=== PATIENT | male | born 1945 | race Caucasian/White ===

== ENCOUNTER 2018-06-20 10:02 | Outpatient (CLI) | payer OTHER | END 2018-06-20 11:09 | disposition home or self-care (01) | LOC: TOM 10:02 → MAMO-SONO 10:45 → TOM 11:09 | DX: J30.89 Other allergic rhinitis (principal); I70.0 Atherosclerosis of aorta; F17.210 Nicotine dependence, cigarettes, uncomplicated; Z98.890 Other specified postprocedural states; R73.01 Impaired fasting glucose; M51.06 Intervertebral disc disorders with myelopathy, lumbar region; R97.20 Elevated prostate specific antigen [PSA]; Z12.5 Encounter for screening for malignant neoplasm of prostate; R91.1 Solitary pulmonary nodule; Z12.11 Encounter for screening for malignant neoplasm of colon; M54.14 Radiculopathy, thoracic region; E04.1 Nontoxic single thyroid nodule; M48.061 Spinal stenosis, lumbar region without neurogenic claudication ==

== ENCOUNTER → 2018-11-20 | Outpatient (CLI) | payer OTHER | END | disposition home or self-care (01) | LOC: TOM 12:41 | DX: M54.5 Low back pain (principal) ==

== ENCOUNTER → 2019-01-16 16:56 | Outpatient (CLI) | payer OTHER | END | disposition home or self-care (01) | LOC: LAB 16:56 | DX: R97.20 Elevated prostate specific antigen [PSA] (principal) ==

== ENCOUNTER 2019-01-18 07:15 | Outpatient (CLI) | payer OTHER | END 2019-01-18 07:17 | disposition home or self-care (01) | LOC: SONOGRAMA 07:15 | DX: R97.20 Elevated prostate specific antigen [PSA] (principal) ==

== ENCOUNTER → 2019-02-07 | Outpatient (CLI) | payer OTHER | END | disposition home or self-care (01) | LOC: NUCLEAR 08:30 | DX: C61 Malignant neoplasm of prostate (principal) | CPT/HCPCS: 78306; 78320; A9503 ==

== ENCOUNTER 2019-04-29 15:06 | Outpatient (CLI) | payer OTHER | END 2019-04-30 12:56 | disposition home or self-care (01) | LOC: RAD 15:06 | DX: M51.36 Other intervertebral disc degeneration, lumbar region (principal) ==

== ENCOUNTER 2019-08-27 13:19 | Outpatient (CLI) | payer OTHER | END 2019-08-27 13:30 | disposition home or self-care (01) | LOC: RAD 13:19 | DX: M43.26 Fusion of spine, lumbar region (principal) ==

== ENCOUNTER 2019-11-11 10:05 | Outpatient (CLI) | payer OTHER | END 2019-11-11 10:19 | disposition home or self-care (01) | LOC: TOM 10:05 | PROVIDERS: ATTEND Urology | DX: N20.0 Calculus of kidney (principal) ==

== ENCOUNTER → 2020-02-18 | Outpatient (CLI) | payer OTHER ==
[~2020-02-18] MED LIST: LISINOPRIL; LISINOPRIL-HCT1 EAC2; LISINOPRIL20 MG PO; PHENAZOPYRIDIN100 MG
== END | disposition home or self-care (01) ==
LOC: NUCLEAR 02-11 08:00
PROVIDERS: ATTEND Internal Medicine Hematology & Oncology
DX: C61 Malignant neoplasm of prostate (principal); I10 Essential (primary) hypertension
CPT/HCPCS: 78816; A9552

== ENCOUNTER 2020-02-25 20:00 | Inpatient (IN) | payer OTHER ==
[~2020-02-25] VITALS: Ht 185.4 cm; Wt 87.5 kg
[2020-02-25] MEDS ORDERED: LISINOPRIL (20:22)
--- NOTE | 2020-02-25 20:22 | NUR ---
PTE SE RECIBE POR GANT CATHETER PROBLEM REFIERE PTE.
[2020-03-02] MEDS ORDERED: PHENAZOPYRIDIN100 MG (08:10)
[2020-03-02] MEDS ORDERED: LISINOPRIL-HCT1 EAC2 (08:10)
== END 2020-03-08 11:03 | disposition home or self-care (01) | DRG 699 ==
LOC: ER 20:00 → SURG 21:23 → SEC-K 21:23 → SURG 22:04
PROVIDERS: ADMIT Urology; ATTEND Urology
PROC: 0T9430Z Drainage of Left Kidney Pelvis with Drainage Device, Percutaneous Approach (ICD-10-PCS; principal; 2020-02-26)
DX: T83.091A Other mechanical complication of indwelling urethral catheter, initial encounter (principal); N13.1 Hydronephrosis with ureteral stricture, not elsewhere classified; C77.8 Secondary and unspecified malignant neoplasm of lymph nodes of multiple regions; D62 Acute posthemorrhagic anemia; C79.89 Secondary malignant neoplasm of other specified sites; R31.0 Gross hematuria; I10 Essential (primary) hypertension; Z20.828 Contact with and (suspected) exposure to other viral communicable diseases; E11.9 Type 2 diabetes mellitus without complications; C61 Malignant neoplasm of prostate

== ENCOUNTER 2020-03-19 10:39 | Inpatient (IN) | payer OTHER ==
[~2020-03-19] VITALS: Ht 185.4 cm; Wt 86.2 kg
[~2020-03-19 10:39] MED LIST changes: -LISINOPRIL20 MG PO
[2020-03-21] MEDS ORDERED: LISINOPRIL20 MG PO (13:55)
== END 2020-03-21 16:47 | disposition home or self-care (01) | DRG 699 ==
LOC: ER 10:39 → SURG 19:40
PROVIDERS: ADMIT Urology; ATTEND Urology
PROC: 0T9430Z Drainage of Left Kidney Pelvis with Drainage Device, Percutaneous Approach (ICD-10-PCS; principal; 2020-03-20)
DX: N99.522 Malfunction of incontinent external stoma of urinary tract (principal); E87.1 Hypo-osmolality and hyponatremia; C79.02 Secondary malignant neoplasm of left kidney and renal pelvis; I10 Essential (primary) hypertension; C61 Malignant neoplasm of prostate; R31.9 Hematuria, unspecified; T50.2X5A Adverse effect of carbonic-anhydrase inhibitors, benzothiadiazides and other diuretics, initial encounter; D63.0 Anemia in neoplastic disease; Z20.828 Contact with and (suspected) exposure to other viral communicable diseases

== ENCOUNTER 2020-03-28 11:25 | Emergency (ER) | payer OTHER ==
[~2020-03-28] VITALS: Ht 185.4 cm; Wt 86.2 kg
[~2020-03-28 11:25] MED LIST changes: +LISINOPRIL20 MG PO
[2020-03-28] MEDS ORDERED: CASODEX50 MG PO (12:36)
== END 2020-03-28 14:50 | disposition home or self-care (01) ==
LOC: ER 11:25
DX: N99.528 Other complication of incontinent external stoma of urinary tract (principal); C61 Malignant neoplasm of prostate; R33.8 Other retention of urine

== ENCOUNTER 2020-04-05 12:12 | Emergency (ER) | payer OTHER ==
[~2020-04-05] VITALS: Ht 185.4 cm; Wt 88.0 kg
[~2020-04-05 12:12] MED LIST changes: +CASODEX50 MG PO
== END 2020-04-05 18:07 | disposition home or self-care (01) ==
LOC: ER 12:12
DX: N99.521 Infection of incontinent external stoma of urinary tract (principal); B96.5 Pseudomonas (aeruginosa) (mallei) (pseudomallei) as the cause of diseases classified elsewhere; B96.89 Other specified bacterial agents as the cause of diseases classified elsewhere; Y83.3 Surgical operation with formation of external stoma as the cause of abnormal reaction of the patient, or of later complication, without mention of misadventure at the time of the procedure; Z03.818 Encounter for observation for suspected exposure to other biological agents ruled out

== ENCOUNTER 2020-06-20 08:20 | Emergency (ER) | payer OTHER ==
[~2020-06-20] VITALS: Ht 180.3 cm; Wt 72.6 kg
== END 2020-06-20 14:50 | disposition home or self-care (01) ==
LOC: ER 08:20
DX: R33.8 Other retention of urine (principal); N39.0 Urinary tract infection, site not specified; B95.7 Other staphylococcus as the cause of diseases classified elsewhere; R31.0 Gross hematuria; C61 Malignant neoplasm of prostate

== ENCOUNTER 2020-07-08 18:58 | Inpatient (IN) | payer OTHER ==
[~2020-07-08] VITALS: Ht 185.4 cm; Wt 74.8 kg
[2020-07-08] MEDS ORDERED: ERLEADA60 MG PO (19:06)
[2020-07-09] MEDS ORDERED: ABANEU-SL TABL1 EACH (15:25)
[2020-07-09] MEDS ORDERED: INTEGRA F CAPS1 EAC1 (15:25)
[2020-07-09] MEDS ORDERED: CYANOCOBAL1000 MCG/1 (15:25)
[2020-07-09] MEDS ORDERED: AMMONIUM LACTA385 GM (15:25)
[2020-07-09] MEDS ORDERED: ST. JOSEPH ASPI81 M2 (15:26)
[2020-07-09] MEDS ORDERED: B COMPLEX1 EACH (15:26)
[2020-07-09] MEDS ORDERED: BICALUTAMIDE50 MG (15:26)
[2020-07-09] MEDS ORDERED: LISINOPRIL20 MG (15:26)
[2020-07-09] MEDS ORDERED: TRAM1TAB98 (15:26)
[2020-07-16] MEDS ORDERED: GABAPENTIN300 MG PO (12:14)
[2020-07-16] MEDS ORDERED: PROTONIX40 MG PO (12:15)
[2020-07-16] MEDS ORDERED: CIPRO500 MG PO (12:16)
[2020-07-16] MEDS ORDERED: ZESTRIL20 MG PO (12:17)
[2020-07-16] MEDS ORDERED: INTESTINEX680 M1 PO (12:17)
[2020-07-16] MEDS ORDERED: INTEGRA PLUS C1 EACH PO (12:18)
[2020-07-16] MEDS ORDERED: VITAMIN B-121000 MC2 SL (12:23)
[2020-07-16] MEDS ORDERED: ULTRACET PO (12:24)
[2020-07-16] MEDS ORDERED: B-100 COMPLEX100 MG PO (12:24)
== END 2020-07-16 17:18 | disposition home health service (06) | DRG 699 ==
LOC: ER 18:58 → SURH 07-09 11:00 → SEC-K 07-09 11:00 → SURH 07-09 14:35
PROVIDERS: Radiology Vascular & Interventional Radiology; ADMIT Internal Medicine; ATTEND Internal Medicine
PROC: 30233N1 Transfusion of Nonautologous Red Blood Cells into Peripheral Vein, Percutaneous Approach (ICD-10-PCS; 2020-07-09)
PROC: 8E0ZXY6 Isolation (ICD-10-PCS; 2020-07-10)
PROC: 0FB03ZX Excision of Liver, Percutaneous Approach, Diagnostic (ICD-10-PCS; 2020-07-10)
PROC: 0T9430Z Drainage of Left Kidney Pelvis with Drainage Device, Percutaneous Approach (ICD-10-PCS; 2020-07-10)
PROC: 0T25X0Z Change Drainage Device in Kidney, External Approach (ICD-10-PCS; 2020-07-10)
PROC: 06H03DZ Insertion of Intraluminal Device into Inferior Vena Cava, Percutaneous Approach (ICD-10-PCS; principal; 2020-07-14 18:00)
DX: T83.092A Other mechanical complication of nephrostomy catheter, initial encounter (principal); C77.5 Secondary and unspecified malignant neoplasm of intrapelvic lymph nodes; C78.7 Secondary malignant neoplasm of liver and intrahepatic bile duct; D62 Acute posthemorrhagic anemia; I82.422 Acute embolism and thrombosis of left iliac vein; I82.412 Acute embolism and thrombosis of left femoral vein; D63.0 Anemia in neoplastic disease; R31.0 Gross hematuria; Z20.822 Contact with and (suspected) exposure to COVID-19; Z85.46 Personal history of malignant neoplasm of prostate; Z74.01 Bed confinement status

== ENCOUNTER 2020-08-11 17:14 | Emergency (ER) | payer OTHER ==
[~2020-08-11] VITALS: Ht 185.4 cm; Wt 73.5 kg
[~2020-08-11 17:14] MED LIST changes: +ABANEU-SL TABL1 EACH; +AMMONIUM LACTA385 GM; +B COMPLEX1 EACH; +B-100 COMPLEX100 MG PO; +BICALUTAMIDE50 MG; +CIPRO500 MG PO; +CYANOCOBAL1000 MCG/1; +ERLEADA60 MG PO; +GABAPENTIN300 MG PO; +INTEGRA F CAPS1 EAC1; +INTEGRA PLUS C1 EACH PO; +INTESTINEX680 M1 PO; +LISINOPRIL20 MG; +PROTONIX40 MG PO; +ST. JOSEPH ASPI81 M2; +TRAM1TAB98; +ULTRACET PO; +VITAMIN B-121000 MC2 SL; +ZESTRIL20 MG PO
== END 2020-08-11 21:42 | disposition home or self-care (01) ==
LOC: ER 17:14
DX: N39.0 Urinary tract infection, site not specified (principal); R31.0 Gross hematuria; B96.89 Other specified bacterial agents as the cause of diseases classified elsewhere; Z03.818 Encounter for observation for suspected exposure to other biological agents ruled out

== ENCOUNTER 2020-09-22 18:02 | Inpatient (IN) | payer OTHER ==
[~2020-09-22] VITALS: Ht 185.4 cm; Wt 70.3 kg
[2020-09-22] MEDS ORDERED: CIPRO500 MG (18:39)
[2020-09-22] MEDS ORDERED: TRAMADOL (18:40)
--- NOTE | 2020-09-22 18:40 | NUR ---
PTE SE RECIBE POR MALFUNCTION OF NEPHROSTOMY TUBE Y TOS MELISSA REFIERE PARAMEDICO Y FAMILIAR.
--- NOTE | 2020-09-22 19:53 | NUR ---
PTE ALERTA Y ORIENTADO X3 EN DARLENE ACOMPANADO. SE RECIBE PTE CON GATN DE SHERMAN HOGAR DRENANDO 25 ML DE ORINA COLOR C[place]A. SE LE ERNA MUESTRAS DE LAB. TEODORO ORDEN MEDICA BAJO MEDIDAS ASEPTICAS. SE CANALIZA EN ANTEBRAZO Y BRAZO DERECHO AREA AGNES DE EDEMA Y DE ENROJECIMIENTO. FAMILIAR DE PTE FIRMA CONSENTIMIENTO DE TRANSFUSION DE RANULFO. SE LE ERNA MUESTRAS DE TUBOS PILOTOS PARA 2 UNIDADES DE PRBC FRACCIONADAS. SE LLAMA A BANCO DE RANULFO Y SE HABLA CON LICENCIADA NOHEMI PARA NOTIFICARLE ORDEN DE TRANSFUSION DE 2 PRBC FRACCIONADAS A LAS 6:39PM. PERSONAL DE BANCO DE RANULFO SE LLEVA TUBOS PILOTOS A LAS 7:05PM. SE EDUCA A PTE/FAMILIAR SOBRE TRATAMIENTO MEDICO.
[2020-09-23] MEDS ORDERED: ABANEU-SL TABL1 EACH (09:22)
[2020-09-23] MEDS ORDERED: FENTANYL1 EAC3 (09:22)
[2020-09-23] MEDS ORDERED: CYANOCOBAL1000 MCG/1 (09:22)
[2020-09-23] MEDS ORDERED: GABAPENTIN300 M2 (09:23)
[2020-09-23] MEDS ORDERED: TRAM1TAB98 (09:23)
[2020-09-23] MEDS ORDERED: LISINOPRIL20 MG (09:23)
[2020-09-23] MEDS ORDERED: PANTOPRAZOLE SO40 MG (09:23)
[2020-09-23] MEDS ORDERED: INTEGRA PLUS C1 EACH (09:23)
[2020-09-23] MEDS ORDERED: INTEGRA F CAPS1 EAC1 (09:23)
[2020-09-23] MEDS ORDERED: RAYOS5 MG (09:23)
[2020-09-23] MEDS ORDERED: ERLEADA60 MG (09:24)
== END 2020-10-01 17:58 | disposition home health service (06) | DRG 699 ==
LOC: ER 18:02 → MEDJ 22:19 → MEDI 09-27 17:24
PROVIDERS: ADMIT Internal Medicine; ATTEND Internal Medicine
PROC: 0T25X0Z Change Drainage Device in Kidney, External Approach (ICD-10-PCS; principal; 2020-09-23)
PROC: 0T9030Z Drainage of Right Kidney with Drainage Device, Percutaneous Approach (ICD-10-PCS; 2020-09-23)
PROC: 30233N1 Transfusion of Nonautologous Red Blood Cells into Peripheral Vein, Percutaneous Approach (ICD-10-PCS; 2020-09-23)
PROC: 3E0F7SF Introduction of Other Gas into Respiratory Tract, Via Natural or Artificial Opening (ICD-10-PCS; 2020-09-27)
DX: T83.123A Displacement of other urinary stents, initial encounter (principal); E87.1 Hypo-osmolality and hyponatremia; C78.7 Secondary malignant neoplasm of liver and intrahepatic bile duct; N17.8 Other acute kidney failure; C77.2 Secondary and unspecified malignant neoplasm of intra-abdominal lymph nodes; I82.412 Acute embolism and thrombosis of left femoral vein; N13.6 Pyonephrosis; B37.49 Other urogenital candidiasis; Y83.8 Other surgical procedures as the cause of abnormal reaction of the patient, or of later complication, without mention of misadventure at the time of the procedure; E86.9 Volume depletion, unspecified; C61 Malignant neoplasm of prostate; D63.0 Anemia in neoplastic disease; D50.0 Iron deficiency anemia secondary to blood loss (chronic); Z20.822 Contact with and (suspected) exposure to COVID-19; R31.9 Hematuria, unspecified; Z66 Do not resuscitate; Y83.1 Surgical operation with implant of artificial internal device as the cause of abnormal reaction of the patient, or of later complication, without mention of misadventure at the time of the procedure